=== PATIENT | female | born 1955 | race Caucasian/White ===

== ENCOUNTER 2023-04-21 13:41 | Emergency (ER) | payer OTHER, SELFPAY ==
[2023-04-21 14:55] VITALS: BP 144/87; PULSE 71; RESP 18; TEMP 36.6; O2SAT 98; BMI 27.3
--- NOTE | 2023-04-21 15:21 | ED_ITS ---
Discharge Plan Disposition Patient Disposition: Home, Self-Care Condition: Good Prescriptions Prescriptions: New sulfamethoxazole-trimethoprim [Bactrim DS] 800-160 mg tablet 1 tab PO Q12H Qty: 20 0RF cephalexin 500 mg capsule 500 mg PO QID 10 Days Qty: 40 0RF mupirocin 2 % ointment 1 applic topical TID 10 Days Qty: 22 0RF Rx Instructions: apply to area on tip of finger as directed No Action lovastatin 10 mg Tablet 10 mg PO DAILY triamterene-hydrochlorothiazid 37.5-25 mg tablet 1 tab PO DAILY Referrals Follow up/Referrals: Provider,Referral, MD [Primary Care Provider] - See instructions Activity Restrictions/Add. Instructions Additional Instructions/Restrictions: *Start antibiotic(s) immediately and be sure to take as ordered for the FULL length of time although you may be feeling better or start to see improvement in the next 24-48 hours *Monitor closely. Outlined redness so that you can monitor easier. Follow up immediately for new or worsening symptoms including but not limited to redness, swelling, streaking from site fever or chills. *Warm compress 15 minutes 3-4 times day *Never squeeze or pop these on your own. Seek immediate medical attention next time this occurs *Monitor Temp. Tylenol every 4 hours as needed and ibuprofen every 6 hours as needed (as long as your primary care doctor has told you that it is ok to take both. For fever, aches, pain. ER if no less that 101 despite Tylenol and ibuprofen ?Follow up with your family doctor/primary care physician in the next 48-72 hours if no improvement Straight to ER if any worsening of swelling, streaks, fever or spreading of swelling and redness Over the counter Motrin and/or Tylenol may help with pain Clinical Impressions Clinical Impression: Skin problem Instructions Patient Instructions: Trimethoprim/Sulfamethoxazole (Alternative Therapy), Cephalexin, Mupirocin, DI for Skin Abscess Discharge ED Provider: Gladys Guillen [facility] General Stated complaint: right infected finger Mode of Arrival: Ambulatory Source of Information: Patient Limitations: No Limitations Time Seen by Provider: 04/21/23 15:22 Description of Symptoms (Recalled from Triage Doc. by RN): PATIENT C/O INFECTION TO RIGHT INDEX FINGER X 6 DAYS HEENT Symptoms (Recalled from RN notes): No Resp Symptoms (Recalled from RN notes): No Skin Symptoms (Recalled from RN notes): Yes MS Symptoms (Recalled from RN notes): No Functional Status (Recalled from RN notes): WNL History of Present Illness Provider Complaint: Patient states that she is not sure if she may have stuck something in the tip of her finger or if she may have bumped her finger but she has been having pain and small blister like area on the tip of finger that has continued to get worse States she noticed it about 6 days ago but over the last couple of days it has got worse and more sore States that [place] and not sure if she may have contaminated it or something but today when the swelling was little worse and the blister like arrea on the tip of her finger was yellowish so she came in to get it checked Related Data Home Medications Medication Instructions Recorded Confirmed lovastatin 10 mg tablet 10 mg PO DAILY 04/21/23 04/21/23 triamterene 37.5 1 tab PO DAILY 04/21/23 04/21/23 mg-hydrochlorothiazide 25 mg tablet Previous Rx's Medication Instructions Recorded cephalexin 500 mg capsule 500 mg PO QID 10 days #40 caps 04/21/23 mupirocin 2 % topical ointment 1 applic topical TID 10 days #22 04/21/23 grams sulfamethoxazole 800 1 tab PO Q12H #20 tabs 04/21/23 mg-trimethoprim 160 mg tablet (Bactrim DS) Allergies Allergy/AdvReac Type Severity Reaction Status Date / Time No Known Allergies Allergy Verified 04/21/23 15:02 Worker's Comp Is this a Worker's Comp case?: No [facility] Disclaimer: The information contained in this section may have been updated after the patient was seen, as this information can be updated by other users. Medical History (Updated 04/21/23 @ 15:43 by Gladys Guillen APRN) Hyperlipidemia Surgical History (Updated 04/21/23 @ 15:04 by Maxine Perdomo RN) History of appendectomy History of cholecystectomy Social History Smoking Status: Unknown if ever smoked alcohol intake: never current occupational status: unemployed Travel in the last 8 weeks: None ROS Obtained: Yes All systems reviewed & no additional complaints except as documented and Yes Systems reviewed as appropriate & no additional complaints except as documented Constitutional Constitutional: Reports system reviewed and no additional complaints, except as documented and Reports as per HPI ENT Ears, Nose, Mouth, and Throat: Reports system reviewed and no additional complaints, except as documented Cardiovascular Cardiovascular: Reports system reviewed and no additional complaints, except as documented and Reports as per HPI Respiratory Respiratory: Reports system reviewed and no additional complaints, except as documented and Reports as per HPI Gastrointestinal Gastrointestingal: Reports system reviewed and no additional complaints, except as documented and as per HPI Integumentary/Breasts Skin/Breast: Reports system reviewed and no additional complaints, except as documented and Reports as per HPI Comments: mild swelling with small blister like area on tip of right index finger Physical Exam General General appearance: alert and in no apparent distress Respiratory Respiratory exam: Present normal lung sounds bilaterally; Absent respiratory distress or wheezes Cardiovascular Cardiovascular exam: Present regular rate, normal rhythm and normal heart sounds Expanded Upper Extremity Exam Right: Hand L/R front image: 1. other (small yellowish blister like area noted, draining culture obtained and sent to lab, minor swelling and redness noted at this time patient wearing artificial nails) Neurological Exam Neurological exam: Present alert, oriented X3 and normal gait Medical Decision Making Yamil Inquiry Pt receiving controlled substance: No Yamil was queried for this patient: No Vital Signs: 04/21/23 14:55 Temperature 97.8 F Temperature Source Oral Pulse Rate [Left Brachial] 71 Respiratory Rate 18 Blood Pressure [Left Arm] 144/87 H Blood Pressure Mean [Left Arm] 106 Blood Pressure Source [Left Arm] Automatic Cuff Blood Pressure Position [Left Arm] Sitting 02 Sat by Pulse Oximetry 98 Oxygen Delivery Method Room Air Medical Decision Narrative: Medication discussed and dosed per pharmacy
[2023-04-21 15:36] VITALS: BP 144/87; PULSE 71; RESP 18; TEMP 36.6; O2SAT 98
== END 2023-04-21 15:40 | disposition home or self-care (01) ==
PROVIDERS: Emergency Provider Nurse Practitioner
DX: M79.644 Pain in right finger(s) (principal); L08.9 Local infection of the skin and subcutaneous tissue, unspecified; E78.5 Hyperlipidemia, unspecified
CPT/HCPCS: 87070; 87205; 99204; 99212; G0463